=== PATIENT | male | born 1940 | race Caucasian/White ===

== ENCOUNTER → 2019-08-16 | Outpatient (CLI) | payer MEDICARE | END | disposition home or self-care (01) | LOC: LABWHC1 12:03 | PROVIDERS: ATTEND Internal Medicine Interventional Cardiology | DX: Z11.59 Encounter for screening for other viral diseases (principal) | CPT/HCPCS: 87635 ==

== ENCOUNTER 2019-08-18 11:08 | Day surgery (SDC) | payer MEDICARE ==
[2019-08-17 10:02] VITALS: BMI 32.8
[~2019-08-18 11:08] MED LIST: ALPRAZolam 0.25 MG TAB PO PRN; ALPRAZolam 0.5 MG TAB PO PRN; ASPIRIN 325 MG TAB PO ONE; ATORVASTATIN 80 MG TAB PO ONE; NITROGLYCERIN SL TABS 0.4 MG TAB SUBLINGUAL PRN; SODIUM CHLORIDE 0.9% 1,000 ML in EMPTY BAG 1 BAG IV ONE
[2019-08-18] MEDS ORDERED: LIDOCAINE 1% INJ 10MG/ML (20 ML MDV) ONE (11:36)
[2019-08-18] MEDS ORDERED: VERAPAMIL 2.5 MG/ML 2 ML AMP ONE (11:36)
[2019-08-18] MEDS ORDERED: fentaNYL (PF) 50 MCG/ML 2 ML AMP ONE (11:36)
[2019-08-18] MEDS ORDERED: SODIUM CHLORIDE 0.9% 1,000 ML IV ONE (11:43)
[2019-08-18 11:46] VITALS: RESP 16
[2019-08-18 11:58] LABS: Basophils % (A) 1 %; Eosinophils # (A) 0.3 k/uL (0-0.7); Eosinophils % (A) 7 %; HGB 14.9 gm/dL (13.0-17.5); Lymphocytes # (A) 1.4 k/uL (1.0-4.8); Lymphocytes % (A) 29 %; MCH 34.4 pg (25.0-35.0); MCHC 34.6 g/dL (31.0-37.0); MCV 99.5 fL (80.0-100.0); Mean Platelet Volume 7.9; Monocytes # (A) 0.3 k/uL (0-1.0); Monocytes % (A) 6 %; Neutrophils # (A) 2.5 k/uL (1.3-7.7); Neutrophils % (A) 53 %; Platelet Count 134 k/uL (150-450); RBC 4.32 m/uL (4.30-5.90); RDW 13.1 % (11.5-15.5); WBC 4.6 k/uL (3.8-10.6)
[2019-08-18] MEDS ORDERED: fentaNYL (PF) 50 MCG/ML 2 ML AMP IV ONE (12:05)
[2019-08-18] MEDS ORDERED: LIDOCAINE 1% INJ 10MG/ML (20 ML MDV) SQ ONE (12:08)
[2019-08-18] MEDS ORDERED: MIDAZOLAM 2 MG/2 ML VIAL IV ONE (12:09)
[2019-08-18] MEDS ORDERED: VERAPAMIL SYRINGE (5 MG/10 ML) INTRAARTER ONE (12:10)
[2019-08-18 12:15] LABS: African American GFR (CKD) >90 (>60 ml/min/1.73 sqM); Anion Gap 7 mmol/L; Blood Urea Nitrogen 19 mg/dL (9-20); Calcium 8.4 mg/dL (8.4-10.2); Carbon Dioxide 25 mmol/L (22-30); Chloride 109 mmol/L (98-107); Glucose 89 mg/dL (74-99); Non-African American GFR(CKD) 88 (>60 ml/min/1.73 sqM); Potassium 4.4 mmol/L (3.5-5.1); Sodium 141 mmol/L (137-145)
[2019-08-18] MEDS ORDERED: CLOPIDOGREL 75 MG TAB ONE (12:28)
[2019-08-18] MEDS ORDERED: BIVALIRUDIN BOLUS 250 MG/50 ML IV ONE (12:28)
[2019-08-18] MEDS ORDERED: BIVALIRUDIN 250 MG in SODIUM CHLORIDE 0.9% 50 ML IV ONE (12:30)
[2019-08-18] MEDS ORDERED: CLOPIDOGREL 75 MG TAB PO ONE (12:32)
[2019-08-18] MEDS ORDERED: IOPAMIDOL-370 125ML BTL INJ ONE (12:33)
[2019-08-18] MEDS ORDERED: NITROGLYCERIN 1000MCG/10ML SYRINGE INTRACORON ONE (12:38)
[2019-08-18] MEDS ORDERED: IOPAMIDOL-370 100ML BTL INJ ONE (12:46)
[2019-08-18] MEDS ORDERED: NITROGLYCERIN SL TABS 0.4 MG TAB SUBLINGUAL PRN (12:59)
[2019-08-18] MEDS ORDERED: ZOLPIDEM 5 MG TAB PO PRN (12:59)
[2019-08-18] MEDS ORDERED: RX INFO: IV CONTRAST WAS GIVEN 1 EACH MISC MISCELLANE PRN (12:59)
[2019-08-18] MEDS ORDERED: ATROPINE SULFATE 0.1 MG/ML 10ML SYRINGE IV PRN (12:59)
[2019-08-18] MEDS ORDERED: MAG HYDROX/AL HYDROX/SIMETH 30 ML CUP PO PRN (12:59)
[2019-08-18] MEDS ORDERED: SODIUM CHLORIDE 0.9% 1,000 ML IV SCH (13:00)
--- NOTE | 2019-08-18 17:13 | CC ---
CARDIAC CATHETERIZATION REPORT Mr. Balbuena is an 79-year-old male with a known history of hypertension, hyperlipidemia, history of coronary artery disease who has been complaining of recent onset exertional chest discomfort. He underwent cardiac catheterization, was found to have critical stenosis involving the proximal left circumflex. In view of that, recommendation made regarding angioplasty and stenting. The procedures, risks, and complication were discussed with the patient who is in full understanding and agreement. PROCEDURE: Using the 6-Polish LBU 3.75 guiding catheter after cannulating the left main, a 0.014 balanced medium weight J-wire was advanced across the lesion and positioned distally. Subsequently, a 2.5 x 12 mm Trek balloon was advanced and multiple inflations maximum of 10 atmospheres were done. Following that the balloon was removed and another 0.014 balanced medium J-wire was advanced next to the first one in a karine fashion and positioned distally. Subsequently, a 2.75 x 15 mm Xience Audelia stent was advanced, deployed and post-dilated at 16 atmospheres after the last inflation, after appropriate wait the balloon and the guidewire were withdrawn back in the guiding catheter. Images were obtained and repeated. Those images reveal stable successful stenting. At that point, the guiding catheter, the balloon and the guidewire were removed. The sheath was removed, hemostasis was obtained with deployment of a TR band. There was no immediate complication. Patient was returned to his room in stable condition. Of note, the patient had no chest discomfort or EKG changes with the inflations. He received Angiomax per protocol as well as oral loading dose of clopidogrel. RESULTS: Successful stenting of the proximal left circumflex with reduction of stenosis from 99% to 0%. RECOMMENDATION: Patient be continued on aspirin, Plavix, beta luna, and statin. Anticoagulation will be added and then subsequently the aspirin will be stopped in 4 weeks. He will be re-evaluated down the road regarding the need to restore sinus mechanism. Those findings and recommendation were discussed with the patient and his family and they are in full understanding and agreement. Duration of procedure is 44 minutes. MMODL / IJN: [id number] /
--- NOTE | 2019-08-18 17:19 | LTR ---
DATE OF SERVICE: 08/18/2019 RE: Yimi Balbuena Dear Dr. Lewis; I had the pleasure to perform cardiac catheterization, coronary angioplasty and stenting on Mr. Balbuena at [facility] on August 17 and a full copy of the procedure note will be forwarded to you. In brief, he was found to have critical stenosis and a heavily calcified proximal left circumflex, underwent successful stenting of that vessel. I am hopeful this procedure will stabilize his status and depending on his progress, further recommendation will be made. In the meantime, I will continue on aspirin, clopidogrel, and Eliquis for 4 weeks. Subsequently, the aspirin will be stopped and he will be continued on Eliquis and clopidogrel and be evaluated down the road to see if there is any need to restore sinus mechanism. I will keep you updated on his progress and thank you again for allowing me to participate in this patient's care. Please feel free to call for any questions. Sincerely yours, MD LILIANE Sellers / AMARA: [id number] /
--- NOTE | 2019-08-18 17:19 | CC ---
CARDIAC CATHETERIZATION REPORT Mr. Balbuena is an 79-year-old male with a known history of coronary artery disease, status post stenting of the right coronary artery in 2012, who presented recently with exertional chest discomfort of new onset and was found to be in atrial fibrillation. In view of that, recommendation was made regarding cardiac catheterization. The procedure, its risks and complications were discussed with the patient, who was in full understanding and agreement. PROCEDURE DESCRIPTION: The patient was brought to the test lab technician in a fasting, semi-sedated state after receiving fentanyl and Benadryl and achieving moderate conscious sedated state. Using xylocaine anesthesia and Seldinger technique, a 6-Georgian sheath was introduced in the right radial artery. Selective right and left coronary angiography was performed using 5-Georgian 3-1/2 bend, right and left Johnnie catheters. Multiple views were taken of the coronary arteries, including hemiaxial views. Following that catheters were removed and a 6-Georgian LBU 3.75 guiding catheter was introduced into the system and the aortic valve was crossed and left ventricular end-diastolic pressure was calculated. Following that, angioplasty and stenting was performed. There was no immediate complication. The patient received intra-arterial verapamil. FINDINGS: FLUOROSCOPY: There was severe calcification involving all of the coronary arteries. LEFT MAIN: This is a large-sized vessel bifurcating distally into PDA and posterolateral segment and branches. The left main has a 20% plaque distally. It is heavily calcified as well. LEFT ANTERIOR DESCENDING ARTERY: This is a large-sized vessel reaching toward the apex with a wrap around apex segment giving rise to a proximal diagonal branch. The diagonal branch has a 50% to 60% plaque proximally. The LAD has a 20% to 30% plaque proximally. The vessel is heavily calcified. LEFT CIRCUMFLEX: This is a nondominant vessel, moderate in caliber, giving rise to 2 obtuse marginal branches. In the proximal left circumflex there is a 99% stenosis with slow flow into the obtuse marginal branch. RIGHT CORONARY ARTERY: This is a dominant vessel, moderate in caliber. The stented segment proximally is patent. There is about a 60% in-stent restenosis in the distal segment of the stent. The vessel beyond that is diffusely diseased and heavily calcified. COLLATERALS: There is a collateral from the right coronary artery toward the obtuse marginal branch. LEFT VENTRICULOGRAM: Left ventriculogram was not performed. HEMODYNAMICS: There was no gradient across the aortic valve. The left ventricular end- diastolic pressure was 16 to 20 mmHg. CONCLUSION: 1. Heavily calcified coronary arteries. 2. Patent stent to the right coronary artery with moderate in-stent stenosis. 3. Critical stenosis in the proximal left circumflex. 4. Mild to moderate disease in the LAD and diagonal branch. RECOMMENDATION: In view of findings and anatomy, I have recommended proceeding with angioplasty and stenting of the left circumflex. The procedure, its risks and complications were discussed with the patient, who is in full understanding and agreement. MMODL / IJN: [id number] /
[2019-08-18] MEDS: SYMBICORT 160-4.5 MCG INHALER INHALATION SCH (20:45)
[2019-08-19 03:54] VITALS: BP 141/89; PULSE 78; TEMP 98.1
[2019-08-19 06:28] LABS: African American GFR (CKD) >90 (>60 ml/min/1.73 sqM); Anion Gap 5 mmol/L; Blood Urea Nitrogen 16 mg/dL (9-20); Calcium 8.1 mg/dL (8.4-10.2); Carbon Dioxide 24 mmol/L (22-30); Chloride 109 mmol/L (98-107); Glucose 83 mg/dL (74-99); Non-African American GFR(CKD) 90 (>60 ml/min/1.73 sqM); Potassium 4.3 mmol/L (3.5-5.1); Sodium 138 mmol/L (137-145)
--- NOTE | 2019-08-19 07:32 | PN ---
PROGRESS NOTE Mr. Balbuena is an 79-year-old male with known history of hypertension, hyperlipidemia, who presented with symptoms of exertional chest discomfort as well as progressive fatigue was noted to be in atrial fibrillation, underwent cardiac catheterization was found to have critical stenosis involving the proximal left circumflex and a calcified segment and underwent stenting of that vessel. He is doing well this morning, ambulating without difficulty. Denying any chest pain. Denies any dizziness or palpitation. He continues to be on aspirin 81 mg daily, Eliquis 5 mg twice a day, Tenormin 50 mg daily, Lipitor 80 mg daily, isosorbide mononitrate 60 mg daily. PHYSICAL EXAMINATION: Blood pressure 120/80 with the heart rate in 70s. LUNGS: Clear. HEART: Irregular, irregular. S1, S2. No S3. No rub. ABDOMEN: Soft, nontender. EXTREMITIES: No edema. Right radial pulse intact. EKG revealed atrial fibrillation with no acute ST-segment changes. LAB DATA: Lab data revealed BUN and creatinine 16 and 0.68, potassium 4.3. IMPRESSION: 1. Status post stenting of the left circumflex. 2. Status post stenting of the right coronary artery in 2011 with moderate in-stent restenosis. 3. Atrial fibrillation of unknown duration. 4. Hypertension. 5. Hyperlipidemia. RECOMMENDATION: Patient will be discharged home today and will be re-evaluated as an outpatient regarding the atrial fibrillation. He will continue triple anticoagulation for 4 weeks than aspirin will be stopped. Those findings and recommendations were discussed with the patient. He is in full understanding and agreement. MMODL / IJN: [id number] /
[2019-08-19] MEDS: SYMBICORT 160-4.5 MCG INHALER INHALATION SCH (08:08)
[2019-08-19] MEDS ORDERED: APIXABAN 5 MG TAB PO SCH (09:00)
[2019-08-19] MEDS ORDERED: ATORVASTATIN 40 MG TAB PO SCH (09:00)
[2019-08-19] MEDS ORDERED: ASPIRIN 81 MG PO SCH (09:00)
[2019-08-19] MEDS ORDERED: ATENOLOL 50 MG TAB PO SCH (09:00)
[2019-08-19] MEDS ORDERED: CLOPIDOGREL 75 MG TAB PO SCH (09:00)
[2019-08-19] MEDS ORDERED: ISOSORBIDE MONONITRATE ER 60 MG TAB.ER.24H PO SCH (09:00)
== END 2019-08-19 09:33 | disposition home or self-care (01) ==
LOC: CATHCVL 11:08 → 3SCARD 14:48 → CATHCVL 08-19 09:33
PROVIDERS: ATTEND Internal Medicine Interventional Cardiology
DX: I25.110 Atherosclerotic heart disease of native coronary artery with unstable angina pectoris (principal); T82.855A Stenosis of coronary artery stent, initial encounter; I25.84 Coronary atherosclerosis due to calcified coronary lesion; I10 Essential (primary) hypertension; Z82.49 Family history of ischemic heart disease and other diseases of the circulatory system; E78.00 Pure hypercholesterolemia, unspecified; Z95.5 Presence of coronary angioplasty implant and graft; Z79.899 Other long term (current) drug therapy; E78.2 Mixed hyperlipidemia; Z87.891 Personal history of nicotine dependence; Z79.02 Long term (current) use of antithrombotics/antiplatelets; Z79.82 Long term (current) use of aspirin; Z79.51 Long term (current) use of inhaled steroids
CPT/HCPCS: 85347; 80048 ×2; 85025; 93458; C9600; C1769 ×3; C1887; C1725; C1874; C1894; J2250; J2001; J3010; J0583; Q9967 ×2

== ENCOUNTER → 2019-09-08 | Day surgery (SDC) | payer MEDICARE ==
[2019-09-07 08:36] VITALS: BMI 32.1
[~2019-09-08] MED LIST changes: -ALPRAZolam 0.25 MG TAB PO PRN; -ALPRAZolam 0.5 MG TAB PO PRN; +APIXABAN 5 MG TAB PO SCH; -ASPIRIN 325 MG TAB PO ONE; +ATENOLOL 50 MG TAB PO SCH; +ATORVASTATIN 40 MG TAB PO SCH; -ATORVASTATIN 80 MG TAB PO ONE; +BENZOCAINE SPRAY 1 CAN TOPICAL PRN; +CLOPIDOGREL 75 MG TAB PO SCH; +ISOSORBIDE MONONITRATE ER 60 MG TAB.ER.24H PO SCH; +MIDAZOLAM 2 MG/2 ML VIAL IV ONE; +PROPOFOL 10 MG/ML 20 ML VIAL IV ONE; +SODIUM CHLORIDE 0.9% 1,000 ML IV SCH; -SODIUM CHLORIDE 0.9% 1,000 ML in EMPTY BAG 1 BAG IV ONE; +SODIUM CHLORIDE 0.9% 500 ML 500 ML IV ONE; +SYMBICORT 160-4.5 MCG INHALER INHALATION SCH; +fentaNYL (PF) 50 MCG/ML 5 ML AMP IVP ONE
[2019-09-08] MEDS: BENZOCAINE SPRAY 1 CAN TOPICAL ONE ×2 (08:20→08:30)
[2019-09-08 08:23] VITALS: TEMP 98
--- NOTE | 2019-09-08 09:25 | ECHOT ---
TRANSESOPHAGEAL ECHOCARDIOGRAM INDICATION: Evaluation of the left atrial appendage. PROCEDURE: After explaining the procedure to the patient, its risks and the complications, his blood pressure, heart rate, O2 saturation was monitored. The throat was sprayed with Cetacaine. She received sedation per Anesthesia Department. The probe was introduced into the esophagus without difficulty. Images were obtained. Following that, the probe was removed. There was no immediate complication. FINDINGS: Left atrial size is mildly dilated. Spontaneous contrast was noted. Left atrial appendage is normal. Left ventricular size is normal. The estimated ejection fraction is 50% to 55% The aortic valve, mitral valve and tricuspid valve are normal. Descending thoracic aorta revealed mild atherosclerotic changes. No pericardial effusion was noted. Contrast bubble study revealed no evidence of shunting across the interatrial septum. Doppler pulse wave and color Doppler obtained and revealed mild to moderate mitral with mild tricuspid and trace to mild aortic regurgitation. There was no shunting by color Doppler study. CONCLUSION: 1. Mildly dilated left atrium with normal appearance left atrial appendage with spontaneous contrast. 2. Normal left ventricular size with mild global hypokinesis. 3. Mild to moderate mitral with mild tricuspid regurgitation and trace to mild aortic regurgitation. 4. Mild atherosclerotic changes of the descending aorta. 5. There was no shunting across the interatrial septum. MMODL / IJN: [id number] /
[2019-09-08 09:32] VITALS: RESP 16
[2019-09-08 10:31] VITALS: BP 112/61; PULSE 58
--- NOTE | 2019-09-08 11:44 | CE ---
CARDIAC ELECTROPHYSIOLOGY REPORT INDICATION: Atrial fibrillation. After explaining the procedure to the patient, its risks and complications, blood pressure, heart rate, O2 saturation was monitored. After obtaining transesophageal echocardiogram and obtaining sedated state per Anesthesia Department, a synchronized biphasic 200 joule cardioversion was performed with druze of normal sinus rhythm. There was no immediate complication. LILIANE / AMARA: [id number] /
== END | disposition home or self-care (01) ==
LOC: CATHCVL 07:31
PROVIDERS: ATTEND Internal Medicine Interventional Cardiology
DX: I08.3 Combined rheumatic disorders of mitral, aortic and tricuspid valves (principal); I70.0 Atherosclerosis of aorta; I48.19 Other persistent atrial fibrillation; I25.10 Atherosclerotic heart disease of native coronary artery without angina pectoris; I10 Essential (primary) hypertension; E78.2 Mixed hyperlipidemia; F17.290 Nicotine dependence, other tobacco product, uncomplicated; Z79.82 Long term (current) use of aspirin; Z79.51 Long term (current) use of inhaled steroids; Z79.899 Other long term (current) drug therapy; Z79.02 Long term (current) use of antithrombotics/antiplatelets; Z79.01 Long term (current) use of anticoagulants; Z95.5 Presence of coronary angioplasty implant and graft; Z98.890 Other specified postprocedural states; Z82.49 Family history of ischemic heart disease and other diseases of the circulatory system
CPT/HCPCS: 93312; 93320; 93325; 92960; J2704

== ENCOUNTER 2019-09-10 13:02 | Emergency (ER) | payer MEDICARE ==
[2019-09-10] MEDS ORDERED: IPRATROPIUM-ALBUTEROL 3 ML NEB INHALATION STA (13:40)
--- NOTE | 2019-09-10 13:46 | ED ---
General Adult HPI - General Chief complaint: Shortness of Breath Stated complaint: GI bleed Time Seen by Provider: 09/10/19 13:05 Source: patient, RN notes reviewed, old records reviewed Mode of arrival: ambulatory Limitations: no limitations - History of Present Illness Initial comments: This is an 79-year-old male who presents emergency Department complaining of hemoptysis. Patient states he recently had a stent placed and had a ABIMAEL done recently and had a cardioversion for A. fib. Patient states she's on eliquis and Plavix. Patient states on he had a fever for 101. Patient states he was coughing quite hard and all day Thursday and it seemed improved today however he coughed once and he had blood tinged sputum and he coughed the second time very hard and he coughed up bright red blood cell became concerned and came into the emergency department. Patient denies any shortness of breath patient denies any fever today. Patient denies any chest pain or palpitations. Patient denies any abdominal pain patient denies nausea vomiting diarrhea. All into the legs or calf tenderness. - Related Data Home Medications Medication Instructions Recorded Confirmed Atenolol [Tenormin] 50 mg PO DAILY 08/17/19 09/10/19 Budesonide/Formoterol Fumarate 2 puff INHALATION RT-BID 08/17/19 09/10/19 [Symbicort 160-4.5 Mcg Inhaler] Isosorbide Mononitrate ER [Imdur] 60 mg PO DAILY 08/17/19 09/10/19 Nitroglycerin Sl Tabs [Nitrostat] 0.4 mg SUBLINGUAL Q5M PRN 08/17/19 09/10/19 Aspirin EC [Ecotrin Low Dose] 81 mg PO DAILY 09/10/19 09/10/19 Simvastatin 40 mg PO HS 09/10/19 09/10/19 Previous Rx's Medication Instructions Recorded Apixaban [Eliquis] 5 mg PO BID #180 tab 08/19/19 Clopidogrel [Plavix] 75 mg PO DAILY #90 tab 08/19/19 Amoxicillin/Potassium Clav 1 each PO Q12HR #28 tab 09/10/19 [Augmentin 875-125 Tablet] Allergies Allergy/AdvReac Type Severity Reaction Status Date / Time No Known Allergies Allergy Verified 09/10/19 15:10 Review of Systems ROS Statement: Those systems with pertinent positive or pertinent negative responses have been documented in the HPI. ROS Other: All systems not noted in ROS Statement are negative. Past Medical History Past Medical History: Atrial Flutter, Asthma, Hyperlipidemia, Hypertension History of Any Multi-Drug Resistant Organisms: None Reported Past Surgical History: Heart Catheterization With Stent Additional Past Surgical History / Comment(s): left knee arthroscopy, dental implants 08/18/19 stent cx Past Anesthesia/Blood Transfusion Reactions: No Reported Reaction Date of Last Stent Placement:: 08/18/19 Past Psychological History: No Psychological Hx Reported Smoking Status: Former smoker Past Alcohol Use History: Daily Past Drug Use History: None Reported - Past Family History Father Family Medical History: Myocardial Infarction ([place]) Additional Family Medical History / Comment(s): mi age 61 Mother Family Medical History: CVA/TIA General Exam - General Exam Comments Initial Comments: GENERAL: Patient is well-developed and well-nourished. Patient is nontoxic and well- hydrated and is in mild distress. ENT: Neck is soft and supple. No significant lymphadenopathy is noted. Oropharynx is clear. Moist mucous membranes. Neck has full range of motion without eliciting any pain. EYES: The sclera were anicteric and conjunctiva were pink and moist. Extraocular movements were intact and pupils were equal round and reactive to light. Eyelids were unremarkable. PULMONARY: Unlabored respirations. Good breath sounds bilaterally. Patient has crackles in the left base CARDIOVASCULAR: There is a regular rate and rhythm without any murmurs gallops or rubs. ABDOMEN: Soft and nontender with normal bowel sounds. SKIN: Patient has multiple bruises on his extremities and even under his chin. Patient states it doesn't take much for him to get bruits. NEUROLOGIC: Patient is alert and oriented x3. Cranial nerves II through XII are grossly intact. Motor and sensory are also intact. Normal speech, volume and content. Symmetrical smile. MUSCULOSKELETAL: Normal extremities with adequate strength and full range of motion. No lower extremity swelling or edema. No calf tenderness. LYMPHATICS: No significant lymphadenopathy is noted PSYCHIATRIC: Normal psychiatric evaluation. Limitations: no limitations Course Vital Signs 09/10/19 09/10/19 09/10/19 13:13 14:24 14:31 Temperature 97.9 F Pulse Rate 63 74 78 Respiratory 18 Rate Blood Pressure 136/70 O2 Sat by Pulse 95 Oximetry 09/10/19 15:13 Temperature 98.2 F Pulse Rate 66 Respiratory 17 Rate Blood Pressure 132/70 O2 Sat by Pulse 96 Oximetry Medical Decision Making - Medical Decision Making EKG shows sinus rhythm with occasional PAC at 60 bpm MO interval 186 QRS is 94 QT interval 448 QTC is 448 X-ray shows a possible left-sided pneumonia this is associated symptoms with fever on and Thursday and quite a bit of coughing I will be treating the patient for pneumonia. I spoke with Dr. Caro and he agrees the patient be sent home and will follow-up with the patient on Thursday. - Lab Data Result diagrams: 09/10/19 13:50 09/10/19 13:50 Lab Results 09/10/19 09/10/19 09/10/19 Range/Units 13:50 13:50 13:50 WBC 5.6 (3.8-10.6) k/uL RBC 4.09 L (4.30-5.90) m/uL Hgb 13.5 (13.0-17.5) gm/dL Hct 41.1 (39.0-53.0) % MCV 100.7 H (80.0-100.0) fL MCH 33.1 (25.0-35.0) pg MCHC 32.9 (31.0-37.0) g/dL RDW 12.7 (11.5-15.5) % Plt Count 114 L (150-450) k/uL Neutrophils % 68 % Lymphocytes % 17 % Monocytes % 7 % Eosinophils % 5 % Basophils % 1 % Neutrophils # 3.8 (1.3-7.7) k/uL Lymphocytes # 1.0 (1.0-4.8) k/uL Monocytes # 0.4 (0-1.0) k/uL Eosinophils # 0.3 (0-0.7) k/uL Basophils # 0.0 (0-0.2) k/uL PT 11.1 (9.0-12.0) sec INR 1.1 (<1.2) APTT 26.8 (22.0-30.0) sec Sodium 139 (137-145) mmol/L Potassium 3.9 (3.5-5.1) mmol/L Chloride 110 H (98-107) mmol/L Carbon Dioxide 23 (22-30) mmol/L Anion Gap 6 mmol/L BUN 13 (9-20) mg/dL Creatinine 0.65 L (0.66-1.25) mg/dL Est GFR (CKD-EPI)AfAm >90 (>60 ml/min/1.73 sqM) Est GFR (CKD-EPI)NonAf >90 (>60 ml/min/1.73 sqM) Glucose 103 H (74-99) mg/dL Plasma Lactic Acid Adama (0.7-2.0) mmol/L Calcium 8.2 L (8.4-10.2) mg/dL Magnesium 2.3 (1.6-2.3) mg/dL Total Bilirubin 1.7 H (0.2-1.3) mg/dL AST 30 (17-59) U/L ALT 36 (4-49) U/L Alkaline Phosphatase 83 (38-126) U/L Troponin I (0.000-0.034) ng/mL Total Protein 6.6 (6.3-8.2) g/dL Albumin 3.6 (3.5-5.0) g/dL 09/10/19 09/10/19 Range/Units 13:50 13:50 WBC (3.8-10.6) k/uL RBC (4.30-5.90) m/uL Hgb (13.0-17.5) gm/dL Hct (39.0-53.0) % MCV (80.0-100.0) fL MCH (25.0-35.0) pg MCHC (31.0-37.0) g/dL RDW (11.5-15.5) % Plt Count (150-450) k/uL Neutrophils % % Lymphocytes % % Monocytes % % Eosinophils % % Basophils % % Neutrophils # (1.3-7.7) k/uL Lymphocytes # (1.0-4.8) k/uL Monocytes # (0-1.0) k/uL Eosinophils # (0-0.7) k/uL Basophils # (0-0.2) k/uL PT (9.0-12.0) sec INR (<1.2) APTT (22.0-30.0) sec Sodium (137-145) mmol/L Potassium (3.5-5.1) mmol/L Chloride (98-107) mmol/L Carbon Dioxide (22-30) mmol/L Anion Gap mmol/L BUN (9-20) mg/dL Creatinine (0.66-1.25) mg/dL Est GFR (CKD-EPI)AfAm (>60 ml/min/1.73 sqM) Est GFR (CKD-EPI)NonAf (>60 ml/min/1.73 sqM) Glucose (74-99) mg/dL Plasma Lactic Acid Adama 1.0 (0.7-2.0) mmol/L Calcium (8.4-10.2) mg/dL Magnesium (1.6-2.3) mg/dL Total Bilirubin (0.2-1.3) mg/dL AST (17-59) U/L ALT (4-49) U/L Alkaline Phosphatase (38-126) U/L Troponin I <0.012 (0.000-0.034) ng/mL Total Protein (6.3-8.2) g/dL Albumin (3.5-5.0) g/dL Disposition Clinical Impression: Pneumonia Disposition: HOME SELF-CARE Condition: Good Instructions (If sedation given, give patient instructions): Pneumonia (ED) Prescriptions: Amoxicillin/Potassium Clav [Augmentin 875-125 Tablet] 1 each PO Q12HR #28 tab Is patient prescribed a controlled substance at d/c from ED?: No Referrals: Errol Lewis MD [Primary Care Provider] - 1-2 days Time of Disposition: 16:21
[2019-09-10 14:11] LABS: Basophils % (A) 1 %; Eosinophils # (A) 0.3 k/uL (0-0.7); Eosinophils % (A) 5 %; HCT 41.1 % (39.0-53.0); HGB 13.5 gm/dL (13.0-17.5); Lymphocytes % (A) 17 %; MCH 33.1 pg (25.0-35.0); MCHC 32.9 g/dL (31.0-37.0); MCV 100.7 fL (80.0-100.0); Mean Platelet Volume 7.7; Monocytes # (A) 0.4 k/uL (0-1.0); Monocytes % (A) 7 %; Neutrophils # (A) 3.8 k/uL (1.3-7.7); Neutrophils % (A) 68 %; Platelet Count 114 k/uL (150-450); RBC 4.09 m/uL (4.30-5.90); RDW 12.7 % (11.5-15.5); WBC 5.6 k/uL (3.8-10.6)
[2019-09-10 14:25] LABS: INR 1.1 (<1.2); Partial Thromboplastin Time 26.8 sec (22.0-30.0); Prothrombin Time 11.1 sec (9.0-12.0)
[2019-09-10 14:50] LABS: ALT 36 U/L (4-49); AST 30 U/L (17-59); African American GFR (CKD) >90 (>60 ml/min/1.73 sqM); Albumin 3.6 g/dL (3.5-5.0); Alkaline Phosphatase 83 U/L (38-126); Anion Gap 6 mmol/L; Blood Urea Nitrogen 13 mg/dL (9-20); Calcium 8.2 mg/dL (8.4-10.2); Carbon Dioxide 23 mmol/L (22-30); Chloride 110 mmol/L (98-107); Glucose 103 mg/dL (74-99); Magnesium 2.3 mg/dL (1.6-2.3); Non-African American GFR(CKD) >90 (>60 ml/min/1.73 sqM); Potassium 3.9 mmol/L (3.5-5.1); Sodium 139 mmol/L (137-145); Total Bilirubin 1.7 mg/dL (0.2-1.3); Total Protein 6.6 g/dL (6.3-8.2)
--- NOTE | 2019-09-10 15:02 | XR ---
EXAMINATION TYPE: XR chest 2V DATE OF EXAM: 09/10/2019 COMPARISON: 02/13/2012 HISTORY: 79-year-old male shortness of breath, difficulty breathing TECHNIQUE: PA and lateral views FINDINGS: Heart mildly enlarged. Diffuse interstitial opacities are increased. Some mild patchy left perihilar density. No sizable effusion. IMPRESSION: Mild cardiomegaly. New interstitial opacities and some patchy left perihilar opacity. Correlate for C HF with pulmonary vascular congestion.
--- NOTE | 2019-09-10 15:53 | XR ---
EXAMINATION TYPE: XR chest 1V DATE OF EXAM: 09/10/2019 COMPARISON: 09/10/2019 HISTORY: 79-year-old male TECHNIQUE: Single frontal view of the chest is obtained. FINDINGS: Heart is mildly enlarged. Diffuse interstitial density., Mild patchy left midlung opacity. No sizable effusion. Eventration right hemidiaphragm. IMPRESSION: Borderline to mild cardiomegaly with diffuse interstitial change. Some patchy left midlung opacity. C orrelate to exclude CHF with mild pulmonary vascular congestion versus developing pneumonia.
[2019-09-10] MEDS ORDERED: cefTRIAXone IN SWFI 1,000 MG/10 ML SYRINGE IVP STA (16:03)
[2019-09-10 17:01] VITALS: BP 148/89; PULSE 70; RESP 18; TEMP 98.1
== END 2019-09-10 16:45 | disposition home or self-care (01) ==
LOC: EC 13:02
DX: J18.9 Pneumonia, unspecified organism (principal); I48.91 Unspecified atrial fibrillation; J45.909 Unspecified asthma, uncomplicated; E78.5 Hyperlipidemia, unspecified; I10 Essential (primary) hypertension; R04.2 Hemoptysis; Z79.01 Long term (current) use of anticoagulants; Z79.02 Long term (current) use of antithrombotics/antiplatelets; Z79.51 Long term (current) use of inhaled steroids; Z79.82 Long term (current) use of aspirin; Z79.899 Other long term (current) drug therapy; Z95.5 Presence of coronary angioplasty implant and graft; Z87.891 Personal history of nicotine dependence; Z82.49 Family history of ischemic heart disease and other diseases of the circulatory system
CPT/HCPCS: 36415; 94640; 93005; 80053; 83605; 83735; 84484; 85025; 85610; 85730; 87040; 71045; 71046; 99285; 96374; J0696

== ENCOUNTER → 2021-12-30 | Outpatient (CLI) | payer MEDICARE ==
[2021-12-30 09:13] LABS: INR 1.1 (<1.2); Prothrombin Time 11.7 sec (9.0-12.0)
[2021-12-30 14:18] LABS: Appearance,Urine Clear (Clear); Bilirubin,Urine Negative (Negative); Blood,Urine Negative (Negative); Color,Urine Yellow (Yellow); Ketones,Urine Negative (Negative); Nitrite,Urine Negative (Negative); PH, Urine 5.5 (5.0-8.0); Specific Gravity,Urine 1.018 (1.001-1.030)
[2021-12-30 14:26] LABS: Bacteria,Urine None Seen /HPF (None Seen)
[2021-12-30 15:16] LABS: HCT 49.2 % (39.6-50.0); HGB 16.4 g/dL (13.0-17.0); MCHC 33.3 g/dL (32.0-37.0); MCV 102.1 fL (80.0-97.0); Mean Platelet Volume 10.5 fL (9.5-12.2); NRBC Per 100 WBC 0 /100 WBCS (0.0-0.0); Platelet Count 139 X 10*3/uL (140-440); RBC 4.82 X 10*6/uL (4.40-5.60); RDW 12.7 % (11.5-14.5); WBC 4.97 X 10*3/uL (4.50-10.00)
[2021-12-30 15:21] LABS: African American GFR (CKD) 89.5 (60.0-200.0); Albumin/Globulin Ratio 1.47 (1.60-3.17); Anion Gap 9.3 mmol/L (10.00-18.00); BUN/Creat Ratio 21.99 Ratio (12.00-20.00); Blood Urea Nitrogen 20.1 mg/dL (9.0-27.0); Carbon Dioxide 28.2 mmol/L (20.0-27.5); Globulin 2.7 g/dL (1.6-3.3); Non-African American GFR(CKD) 77.3 (60.0-200.0); Potassium 4.2 mmol/L (3.5-5.5); Total Protein 6.7 g/dL (6.2-8.2)
== END | disposition home or self-care (01) ==
LOC: LABPAT 08:25
PROVIDERS: ATTEND Orthopaedic Surgery
DX: Z01.812 Encounter for preprocedural laboratory examination (principal); M17.12 Unilateral primary osteoarthritis, left knee
CPT/HCPCS: 80053; 81001; 85027; 85610; 85730; 87070

== ENCOUNTER 2022-01-21 05:33 | Day surgery (SDC) | payer MEDICARE ==
[~2022-01-21 05:33] MED LIST changes: +ACETAMINOPHEN TAB 500 MG TAB PO PRN; -APIXABAN 5 MG TAB PO SCH; -ATENOLOL 50 MG TAB PO SCH; -ATORVASTATIN 40 MG TAB PO SCH; -BENZOCAINE SPRAY 1 CAN TOPICAL PRN; -CLOPIDOGREL 75 MG TAB PO SCH; +GABAPENTIN 300 MG CAP PO PRN; -ISOSORBIDE MONONITRATE ER 60 MG TAB.ER.24H PO SCH; +MELOXICAM 7.5 MG TAB PO PRN; -MIDAZOLAM 2 MG/2 ML VIAL IV ONE; -NITROGLYCERIN SL TABS 0.4 MG TAB SUBLINGUAL PRN; -PROPOFOL 10 MG/ML 20 ML VIAL IV ONE; -SODIUM CHLORIDE 0.9% 1,000 ML IV SCH; -SODIUM CHLORIDE 0.9% 500 ML 500 ML IV ONE; -SYMBICORT 160-4.5 MCG INHALER INHALATION SCH; +TRANEXAMIC ACID IN NACL,ISO-OS 1,000 MG in SALINE 1 100ML.BAG IVPB PRN; -fentaNYL (PF) 50 MCG/ML 5 ML AMP IVP ONE
[2022-01-21] MEDS ORDERED: HYDROmorphone 0.5 MG/0.5 ML SYRINGE IVP PRN ×4 (05:44→08:49)
[2022-01-21] MEDS ORDERED: DEXAMETHASONE SOD PHOSPHATE 4 MG/ML 1 ML VIAL IV ONE (05:44)
[2022-01-21] MEDS ORDERED: LACTATED RINGERS 1,000 ML IV SCH (05:44)
[2022-01-21] MEDS ORDERED: ONDANSETRON 4 MG/2 ML VIAL IVP ONE (05:44)
[2022-01-21] MEDS ORDERED: MIDAZOLAM 2 MG/2 ML VIAL IVP ONE (06:42)
[2022-01-21] MEDS ORDERED: fentaNYL (PF) 50 MCG/1 ML VIAL IVP ONE (06:42)
[2022-01-21] MEDS ORDERED: METOPROLOL TARTRATE 5 MG/5 ML VIAL IVP ONE (06:59)
[2022-01-21] MEDS ORDERED: SODIUM CHLORIDE 0.9% (PF) 10 ML VIAL ONE (06:59)
[2022-01-21] MEDS ORDERED: ROCURONIUM 10 MG/ML (5 ML VIAL) IV ONE (06:59)
[2022-01-21] MEDS ORDERED: TRANEXAMIC ACID IN NACL,ISO-OS 1,000 MG/100 ML BAG ONE (06:59)
[2022-01-21] MEDS ORDERED: SUCCINYLCHOLINE CHLORIDE 200 MG/10 ML VIAL IV ONE (06:59)
[2022-01-21] MEDS ORDERED: GLYCOPYRROLATE 0.2 MG/ML 2 ML VIAL ONE (06:59)
[2022-01-21] MEDS ORDERED: PHENYLEPHRINE-0.9% NACL SYG 1,000 MCG/10 ML SYRINGE ONE (06:59)
[2022-01-21] MEDS ORDERED: LIDOCAINE 2% INJ 20 MG/ML (2 ML VIAL) ONE (06:59)
[2022-01-21] MEDS ORDERED: PROPOFOL 10 MG/ML 20 ML VIAL IV ONE (06:59)
[2022-01-21] MEDS ORDERED: NEOSTIGMINE 1 MG/ML 10 ML VIAL ONE (06:59)
[2022-01-21] MEDS ORDERED: ROPIVACAINE 5 MG/ML 30 ML VIAL ONE (06:59)
[2022-01-21] MEDS ORDERED: fentaNYL (PF) 50 MCG/ML 2 ML AMP ONE (06:59)
[2022-01-21] MEDS ORDERED: ceFAZolin 1,000 MG in SODIUM CHLORIDE 0.9% 1,000 ML IRRIGATION ONE (07:03)
[2022-01-21] MEDS ORDERED: LACTATED RINGERS 1,000 ML IV ONE ×2 (07:45→11:19)
[2022-01-21] MEDS ORDERED: NA PHOS,M-B/NA PHOS,DI-BA 133 ML ENEMA RECTAL PRN (08:49)
[2022-01-21] MEDS ORDERED: NALOXONE 0.4 MG/ML 1 ML VIAL IV PRN (08:49)
[2022-01-21] MEDS ORDERED: MAGNESIUM HYDROXIDE 2,400 MG/10 ML CUP PO PRN (08:49)
[2022-01-21] MEDS ORDERED: ONDANSETRON 4 MG/2 ML VIAL IVP PRN (08:49)
[2022-01-21] MEDS ORDERED: bisacodyL 10 MG SUPP RECTAL PRN (08:49)
[2022-01-21] MEDS ORDERED: ROPIVACAINE 0.2%-NS ON-Q PUMP 2 MG/ML EACH MISCELLANE ONE ×2 (08:50→13:21)
[2022-01-21] MEDS ORDERED: HYDROcodone/APAP 7.5-325MG 1 EACH TAB PO PRN ×2 (08:52)
[2022-01-21 08:56] VITALS: TEMP 97.1
[2022-01-21] MEDS ORDERED: SODIUM CHLORIDE 0.9% 1,000 ML IV SCH (09:00)
--- NOTE | 2022-01-21 09:03 | P.OP ---
Date of Procedure: 01/21/22 Preoperative Diagnosis: Severe osteoarthritis left knee Postoperative Diagnosis: Severe osteoarthritis left knee Procedure(s) Performed: Left total knee arthroplasty Implants: [employer] II CR Oxinium cruciate retaining femoral component size 8, left [employer] nonporous tibial baseplate size 7, left [employer] II, XLPE Deep Dished articular insert, size 11 mm, Size 7-8, left [employer] Shannan II resurfacing patellar component, oval, 38 mm All components were cemented using Palacos R bone cement The articulation is Oxinium on polyethylene Anesthesia: LEONELA Surgeon: Reilly Renee [employer]venile [employer] Officer #1: Bianca Saleh Estimated Blood Loss (ml): 30 Pathology: other (Bone and cartilage) Condition: stable Disposition: PACU Indications for Procedure: After failure of conservative treatment we discussed the surgical and nonsurgical treatment options at length. Patient wishes to proceed with a total knee arthroplasty. Complications specific to this procedure were discussed at length, including but not limited to infection, bleeding, stiffness, and nerve injury. Covid-19 was also discussed at length with the patient, and they are aware of the current policies and procedures. The patient was given the option of delaying surgery, but they elect to proceed knowing these risks. Patient is aware of all these complications and informed consent was obtained Operative Findings: The operative findings are consistent with severe osteoarthritis of the left knee Description of Procedure: Patient was seen in the preoperative area and the consent was reviewed and the operative site was marked with a skin marker. The patient verified the procedure and the operative site. An adductor canal pain catheter and an iPACK block was placed by anesthesia in the preoperative area. The patient was then brought to the operating room and given preoperative antibiotics intravenously. A gram of transexamic acid was given intravenously. A general anesthetic was administered by the anesthesia department. A tourniquet was placed on the upper thigh and the lower extremity was prepped with chlorhexidine and draped in usual sterile fashion. A universal timeout was then performed which confirmed the patient's name, surgical site, ALLERGIES, and consent. The lower extremity was then exsanguinated and tourniquet was inflated to 250 mmHg. A standard anterior midline approach to the knee was performed. The skin and subcutaneous tissue were sharply dissected down to the patellar tendon. A medial parapatellar arthrotomy was then performed. The knee was then extended, the patellar was everted, and the knee was again flexed. The infra-patellar fat pad was removed in order to enhance exposure. The anterior horns of both menisci were excised, and a release was performed to the posterior medial aspect of the knee. On gross visual inspection, there was complete loss of articular cartilage in the medial and patellofemoral joint spaces. There was also significant cartilage damage in the lateral compartment. There were multiple periarticular osteophytes globally about the knee which were then removed with a Ronguer. The femoral canal was then opened with the 9.5 mm intramedullary drill. The 8 mm intramedullary mike was then inserted into the femoral canal with the distal femoral cutting guide set for 5 of valgus. The distal femoral cutting block was then pinned in place. The intramedullary mike was then removed, and the distal femur was then cut. The cutting block was then removed and the cut was checked for symmetry. The resected bone was then measured to confirm the appropriate distal femoral resection. Next, the sizing guide was then placed and set for 3 external rotation based off of the epicondylar axis and Whitesides line. Pins were then placed and the drill holes, and the femur was sized with the sizing stylus. The pins were then removed, and the sizing guide was then removed. The spikes of the femoral block was then placed into the predrilled holes, and malleted into place. Two 45 mm pins were then placed into the fixation holes on the cutting block. An aly wing was then used to ensure there would be no notching with the anterior cut. The anterior condyles were cut without notching. The anterior chord cut was then performed, followed by the posterior cut, posterior chamfer cut, and the anterior chamfer cut. The collateral ligaments were protected during the entire process. The cutting block was then removed. Any remaining bone and osteophytes were removed from the femur with a Ronguer. The femoral canal was plugged with autologous bone. Attention was then directed to the tibia. The remaining ACL was removed with a Ronguer, and the tibia was then gently subluxed forward with a large bent knee retractor. Any remaining menisci were excised. The posterior lateral corner was cauterized in order to coagulate the lateral geniculate artery. The extra medullary tibial cutting guide was then placed, set for the appropriate rotation, slope, and depth of resection. The proximal tibia cutting guide was then pinned in place. Proximal tibia was then cut and sized. The femoral trial was placed. A narrow saw blade was then used to remove the anterior intracondylar femoral bone. The CR notch trial was then placed. The tibial trial was placed with the appropriate-sized insert. The knee was able to fully extend and flex to 130 and was stable throughout all range of motion. The knee was then extended and the patella was everted. Patella was then measured, and then using an osteotomy guide, the patella was cut at the appropriate level. The patella was then measured and drilled and the patella trial was then placed. The knee was then taken through range of motion with the patella trial and the patella tracked normally using the no thumbs technique. The knee was then extended patella trial was then removed and the patella was everted. Knee was then flexed and lug holes were drilled through the femoral trial and the femoral trial was then removed. The tibial was then re-exposed, and the tibial broach guide was then pinned in place after it was set for the appropriate rotation to allow for the most coverage without overhang. The tibia was then reamed and broached. The cut surfaces of bone were then irrigated with pulsatile lavage. The knee was also irrigated with Irrisept solution. The components were then opened, the cement was mixed, and the components were then cemented in place. The cement was allowed to harden with the knee in full extension. After the cemented hardened, the tourniquet was released and hemostasis was obtained. A second gram of transexamic acid was given intravenously. The knee was again irrigated. The knee was again taken through range of motion and found to be stable throughout all range of motion of 0-130, and the patella tracked normally. The fascia was then closed with 0 Vicryl followed by #2 strata fix suture. The subcutaneous tissue was closed with 3-0 Vicryl and 3-0 strata fix. Exofin glue was used for the skin and placed with the knee in flexion. After the glue had dried, and Optafoam silver impregnated dressing was applied. The patient was then transferred to recovery room in stable condition. The assistant merchandiser MADDY Vasquez was required due the complexity surgery and the need for a skilled assembler surgical garment. She assisted in positioning, draping, retraction, and closure of the wound.
--- NOTE | 2022-01-21 10:21 | P.ANPRN ---
Procedure Note - Anesthesia - Nerve Block Performed Left Adductor Canal Time Out Performed: Yes (06:41) Date of Procedure: 01/21/22 Procedure Start Time: : Procedure Stop Time: :49 Location of Patient: PreOp Indication: Acute Post-Operative Pain, Requested by Surgeon (Dr Reilly Renee) Sedation Type: Sedate with meaningful contact maintained Preparation: Sterile Prep, Sterile Dressing Position: Supine Catheter: Indwelling Needle Types: Pajunk Needle Gauge: 21 Ultrasound used to visualize needle placement: Yes Ultrasound used to observe medication spread: Yes Injectate: 0.5% Ropivacaine (see comment for volume) (15cc) Blood Aspirated: No Pain Paresthesia on Injection Noted: No Resistance on Injection: Normal Image Stored and Saved: Yes Events: Uneventful and Well Tolerated
--- NOTE | 2022-01-21 10:22 | P.ANPRN ---
Procedure Note - Anesthesia - Nerve Block Performed Left iPack Time Out Performed: Yes Date of Procedure: 01/21/22 Procedure Start Time: 06:50 Procedure Stop Time: 06:56 Location of Patient: PreOp Indication: Acute Post-Operative Pain, Requested by Surgeon (Dr romi Renee) Sedation Type: Sedate with meaningful contact maintained Preparation: Sterile Prep Position: Supine Catheter: None Needle Types: Pajunk Needle Gauge: 21 Ultrasound used to visualize needle placement: Yes Ultrasound used to observe medication spread: Yes Injectate: 0.5% Ropivacaine (see comment for volume) (15cc +5cc PF Normal saline) Blood Aspirated: No Pain Paresthesia on Injection Noted: No Resistance on Injection: Normal Image Stored and Saved: Yes Events: Uneventful and Well Tolerated
--- NOTE | 2022-01-21 10:40 | XR ---
EXAMINATION TYPE: XR knee limited LT DATE OF EXAM: 01/21/2022 COMPARISON: NONE TECHNIQUE: Two views submitted HISTORY: Post op FINDINGS: There is a prosthetic knee in near anatomic alignment. There is soft tissue edema and emphysema. Va scular calcifications noted. Diffuse osteopenia IMPRESSION: 1. Postoperative change. Appears in near-anatomic alignment
[2022-01-21] MEDS ORDERED: ceFAZolin 10 GM VIAL IVPB ONE (11:19)
[2022-01-21 12:33] VITALS: BP 142/78; PULSE 100; RESP 16
[2022-01-21] MEDS ORDERED: SENNOSIDES-DOCUSATE SODIUM 1 EACH TAB PO SCH (21:00)
== END 2022-01-21 13:00 | disposition home health service (06) ==
LOC: OR 05:33
PROVIDERS: ATTEND Orthopaedic Surgery
DX: M17.12 Unilateral primary osteoarthritis, left knee (principal); M25.762 Osteophyte, left knee; G89.18 Other acute postprocedural pain; I10 Essential (primary) hypertension; E78.5 Hyperlipidemia, unspecified; I25.10 Atherosclerotic heart disease of native coronary artery without angina pectoris; J45.909 Unspecified asthma, uncomplicated; Z97.3 Presence of spectacles and contact lenses; Z86.59 Personal history of other mental and behavioral disorders; Z79.899 Other long term (current) drug therapy
CPT/HCPCS: 97110; 97161; 64999; 64448; 76942; 88300; 73560; 27447; C1713; C1776; J2250; J0330; J1100; J2710; J0690 ×2; J2405; J3010 ×2; J2795 ×2; J2370; J2704; J2001

== ENCOUNTER → 2023-01-30 | Outpatient (CLI) | payer MEDICARE ==
--- NOTE | 2023-01-30 08:41 | MR ---
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 IV Contrast: (None if empty) FINDINGS: Alignment: The lumbar vertebral bodies have preserved heights with grade 2 anterolisthesis of L5 on S 1. Cord: The conus medullaris and the distal spinal cord appear unremarkable with regards to their signa l intensity and morphology. Bones/Discs: Mild degeneration changes throughout the spine with osteophyte formation and facet joint arthropathy. Intervertebral disc signal is maintained. T12-L1: No evidence of significant spinal canal stenosis or neural foraminal stenosis. L1-L2: No evidence of significant spinal canal stenosis or neural foraminal stenosis. L2-L3: No evidence of significant spinal canal stenosis or neural foraminal stenosis. L3-L4: Disc bulge and facet joint arthropathy result in mild spinal canal and moderate bilateral neur al foraminal stenosis. L4-L5: Disc bulge and facet joint arthropathy result in mild spinal canal and moderate to severe righ t and moderate left bilateral neural foraminal stenosis. L5-S1: Disc uncovering from grade 2 anterolisthesis and facet joint arthropathy with mild spinal sheryl l stenosis and severe bilateral neural foraminal stenosis. There is bilateral spondylolysis. No significant spinal canal or neural foraminal stenosis in the remainder of the visualized levels. Other findings: Left renal high T2 signal simple appearing renal cysts. IMPRESSION: 1. No definitive evidence of disc herniation or significant spinal canal stenosis. 2. Moderate disc degeneration with associated osteoarthritic changes worse at L4-L5 and L5-S1 with severe bilateral L5-S1 and moderate to severe right L4-L5 neural foraminal stenosis. 3. Grade 2 anterolisthesis of L5 on S1 with bilateral spondylolysis resulting in severe neural forami nal stenosis bilaterally.
== END | disposition home or self-care (01) ==
LOC: RADMRIMAIN 06:50
PROVIDERS: ATTEND Physical Medicine & Rehabilitation
DX: M43.17 Spondylolisthesis, lumbosacral region (principal); M48.062 Spinal stenosis, lumbar region with neurogenic claudication; M47.817 Spondylosis without myelopathy or radiculopathy, lumbosacral region
CPT/HCPCS: 72148